=== PATIENT | female | born 1995 | race Caucasian/White ===

== ENCOUNTER 2021-08-24 10:58 | Emergency (ER) | payer MEDICAID ==
[~2021-08-24] VITALS: Ht 162.6 cm; Wt 61.4 kg
[2021-08-24 11:14] VITALS: BP 119/78
== END 2021-08-24 12:11 | disposition home or self-care (01) ==
LOC: ER 10:58
DX: T23.502A Corrosion of first degree of left hand, unspecified site, initial encounter (principal); T23.501A Corrosion of first degree of right hand, unspecified site, initial encounter; T55.1X1A Toxic effect of detergents, accidental (unintentional), initial encounter; Y93.89 Activity, other specified; Y92.89 Other specified places as the place of occurrence of the external cause; Y99.8 Other external cause status
CPT/HCPCS: 99281